=== PATIENT | female | born 2000 | race Caucasian/White ===

== ENCOUNTER 2021-03-14 10:47 | Emergency (ER) | payer OTHER ==
[~2021-03-14] VITALS: Ht 157.5 cm; Wt 70.0 kg
[2021-03-14 12:38] VITALS: BP 117/65
== END 2021-03-14 13:24 | disposition home or self-care (01) ==
LOC: EMS 10:55
DX: L30.9 Dermatitis, unspecified (principal)
CPT/HCPCS: 99282; Z7502